=== PATIENT | female | born 1970 ===

== ENCOUNTER → 2018-06-20 10:22 | Outpatient (CLI) | payer OTHER, SELFPAY | PROVIDERS: Family Provider Family Medicine; PCP Family Medicine | DX: N95.1 Menopausal and female climacteric states (principal) | CPT/HCPCS: 36415; 83001 ==

== ENCOUNTER → 2018-11-07 08:52 | Outpatient (CLI) | payer OTHER, SELFPAY ==
[2018-11-07 10:09] LABS: Add Manual Diff / Slide Review NO; Basophils Absolute Auto 100 /uL (0-100); Basophils Percent Auto 0.9 % (0-2); Eosinophils Absolute Auto 200 /uL (0-450); Eosinophils Percent Auto 3.3 % (2-4); Hematocrit 41.9 % (36-46); Hemoglobin 13.8 g/dL (12.0-16.0); Lymphocytes Absolute Auto 2200 /uL (1100-4500); Lymphocytes Percent Auto 33.8 % (25-40); Mean Corpuscular HGB Conc 32.9 % (30-36); Mean Corpuscular Hemoglobin 29.9 PG (26-34); Mean Corpuscular Volume 91.1 fL (80-100); Monocytes Absolute Auto 400 /uL (0-900); Monocytes Percent Auto 6.7 % (3-14); Neutrophils Absolute Auto 3600 /uL (1500-7000); Neutrophils Percent Auto 55.3 % (50-75); Platelet Count 223 X10^3/uL (150-400); Red Cell Distribution Width 12.8 % (11.6-14.8); White Blood Cell Count 6.4 X10^3/uL (4.5-11.0)
[2018-11-07 10:50] LABS: Alanine Aminotransferase 37 IU/L (9-52); Albumin 4.5 g/dL (3.5-5.0); Albumin Globulin Ratio 1.2 (1.0-2.8); Alkaline Phosphatase 79 U/L (38-126); Aspartate Aminotransferase 28 IU/L (14-36); BUN Creatinine Ratio 23.3 (6-22); Bilirubin Total 0.4 mg/dL (0.2-1.3); Blood Urea Nitrogen 14 mg/dL (7-17); Calcium 9.3 mg/dL (8.4-10.2); Carbon Dioxide 28 mmol/L (22-32); Chloride 105 mmol/L (98-107); Cholesterol 185 mg/dL (140-199); Estimated Glomerular Filt Rate > 60.0 mL/min (>60); Globulin 3.7 g/dL (1.7-4.1); Glucose 94 mg/dL (70-100); HDL Cholesterol 49 mg/dL (40-60); HEMOLYSIS < 15 (0-50); LDL Cholesterol Calculated 121 mg/dL (<100); Potassium 3.9 mmol/L (3.4-5.1); Sodium 141 mmol/L (137-145); Total Protein 8.2 g/dL (6.3-8.2); Triglycerides 76 mg/dL (35-150)
[2018-11-07 10:58] LABS: Appearance Urine UA CLEAR; Bilirubin Urine UA NEGATIVE (NEGATIVE); Color Urine UA YELLOW; Glucose Urine UA NEGATIVE (Negative); Ketones Urine UA NEGATIVE (NEGATIVE); Leukocyte Esterase Urine UA TRACE (NEGATIVE); Nitrite Urine UA NEGATIVE (Negative); Occult Blood Urine UA TRACE-LYSED (Negative); Protein Urine UA NEGATIVE (Negative); Urobilinogen Urine UA 0.2 E.U./dL (0.2); pH Urine UA 6.5 (4.5-8.0)
[2018-11-07 11:11] LABS: Bacteria Urine None Seen; RBC Urine None Seen (0-5/HPF)
[2018-11-07 11:12] LABS: Culture Indicated Urine Cult Not Indicated; Squamous Epithelial Cell Urine 10-30 /HPF; Thyroid Stimulating Hormone 1.32 uIU/mL (0.47-4.68); WBC Urine 5-10/HPF (0-5/HPF)
== END ==
PROVIDERS: PCP Family Medicine; Visit Provider Family Medicine
DX: Z00.00 Encounter for general adult medical examination without abnormal findings (principal); Z13.220 Encounter for screening for lipoid disorders; Z13.29 Encounter for screening for other suspected endocrine disorder; Z78.0 Asymptomatic menopausal state
CPT/HCPCS: 36415; 80053; 80061; 81003; 81015; 83001; 84443; 85025

== ENCOUNTER → 2019-05-06 12:54 | Outpatient (CLI) | payer OTHER, SELFPAY ==
--- NOTE | 2019-05-06 | DI.MG.S_ITS ---
BILATERAL DIGITAL SCREENING MAMMOGRAM 3D/2D WITH CAD: 05/06/2019 CLINICAL: Routine screening. Comparison is made to exams dated: 07/14/2010 mammogram, 04/19/2009 mammogram, and 05/21/2007 mammogram - [facility]. There are scattered fibroglandular elements in both breasts. Current study was also evaluated with a Computer Aided Detection (CAD) system. No significant masses, calcifications, or other findings are seen in either breast. There has been no significant interval change. IMPRESSION: NEGATIVE There is no mammographic evidence of malignancy. A 1 year screening mammogram is recommended. This exam was interpreted at Station ID: [id number]. NOTE: For mammograms, a report in lay terms will be sent to the patient. Approximately 15% of breast malignancies will not be visualized mammographically. In the management of a palpable breast mass, a negative mammogram must not discourage biopsy of a clinically suspicious lesion. Electronically Signed By: Ro edwards/judah:05/08/2019 10:20:09 letter sent: Normal Exam ACR BI-RADS Category 1: Negative 3341F
== END ==
PROVIDERS: PCP Family Medicine; Visit Provider Family Medicine
DX: Z12.31 Encounter for screening mammogram for malignant neoplasm of breast (principal)
CPT/HCPCS: 77063; 77067

== ENCOUNTER → 2020-02-10 15:21 | Outpatient (CLI) | payer OTHER, SELFPAY ==
[2020-02-11 10:15] LABS: COVID19 Sendout Not Detected (Not Detect)
== END ==
PROVIDERS: PCP Family Medicine; Visit Provider Physician Assistant
DX: Z01.812 Encounter for preprocedural laboratory examination (principal)
CPT/HCPCS: 87635

== ENCOUNTER 2020-02-13 07:30 | Day surgery (SDC) | payer OTHER, SELFPAY ==
--- NOTE | 2020-02-13 | PATH_ITS ---
[facility] Accession Number: [id number] . 01 Material submitted: . colon - POLYPS AT 20CM . 02 Diagnosis: Colon Polyps at 20 cm, Biopsy: Hyperplastic polyps. MRV 02/15/2020 1149 Local . 02 Electronically signed: . Alicia Perez MD, Pathologist NPI- [id number] . 01 Gross description: . POLYPS AT 20CM: Received in formalin are multiple fragment(s) of henderson, soft tissue measuring 0.1 x 0.1 x 0.1 cm to 0.3 x 0.2 x 0.2 cm submitted entirely in 1 cassette(s) /GRETA 02/14/2020 1833 Local . 02 Pathologist provided ICD-10: K63.5 . 02 CPT . 390254 Performed at: 01 [facility] [address] [id number] MD Mario Arvizu MD Phone: [phone] Performed at: 02 [facility] [address] [place], [place] [id number] MD Alicia Perez MD Phone: [phone]
[2020-02-13 07:52] VITALS: BP 137/88; PULSE 97; RESP 16; TEMP 36.3; O2SAT 100
[2020-02-13 07:54] VITALS: BMI 28.3
[2020-02-13] MEDS: LACTATED RINGERS 1,000 ML 200 ML IV (08:04)
--- NOTE | 2020-02-13 08:29 | PM.HP.1 ---
History of Present Illness History of Present Illness Date Patient Seen: 02/13/20 Time Patient Seen: 08:24 Chief complaint: [id number] Narrative: Patient is a woman here for screening colonoscopy. She reports having had 1 about 10 years ago and 2 polyps were removed at that time. She is otherwise healthy. Patient History Medical History Family history of colon cancer in mother (Acute) History of headache (Acute) Varicose veins of right lower extremity (Acute) Surgical History History of colonoscopy (Resolved ~2011) History of third molar tooth extraction Family & Social History Social History: household members family Tobacco & Substance use: Smoking Status Never smoker alcohol intake frequency holiday/special occasion Substance Use Type does not use Meds Home Medications and Allergies Home Medications Medication Instructions Recorded Confirmed Type cholecalciferol (vitamin D3) 25 1,000 unit PO DAILY 10/31/18 02/13/20 History mcg (1,000 unit) capsule hydrocortisone 2.5 % topical cream 1 applictn DC QD-BID PRN #30 gram 10/31/18 02/13/20 Rx with perineal applicator omega-3 fatty acids 1,000 mg 1,000 mg PO DAILY 10/31/18 02/13/20 History capsule psyllium husk 0.4 gram capsule 0.4 gram PO DAILY 10/31/18 02/13/20 History Allergies Allergy/AdvReac Type Severity Reaction Status Date / Time No Known Drug Allergies Allergy Verified 02/13/20 07:45 Review of Systems Review of Systems Narrative: May have been told she had a murmur in the past. ROS: Yes All systems reviewed with the patient and are negative except as otherwise documented Exam Vital Signs (past 8 hours): - 02/13/20 07:52 Temperature 97.4 F L Pulse Rate 97 H Respiratory Rate 16 Blood Pressure 137/88 Pulse Oximetry 100 Oxygen Delivery Method Room Air Narrative Exam Narrative: Cooperative no apparent distress. Eyes are nonicteric. Lungs are clear to auscultation without rales or rhonchi. Heart regular rate and rhythm without murmur gallop. Abdomen is mildly protuberant soft. There are no palpable masses or tenderness. Patient is alert and oriented x3. Assessment & Plan Assessment & Plan narrative: I have discussed the procedure and the rationale with the patient including risks of bleeding, perforation which would necessitate a major operation, failure to find remove all lesions and the potential to tattoo. They appeared to understand and wished to proceed. Son is with her in will be back to pick her up after the procedure.
--- NOTE | 2020-02-13 08:31 | PM.PREOP ---
Pre-operative Note COVID-19 COVID-19 status: Negative Result date/Date tested (Pos, Neg/Pending): 02/10/20 Interval Note History & Physical reviewed/Exam performed by Physician: Yes Changes to H&P: No ASA Class (for procedural sedation): I
--- NOTE | 2020-02-13 09:12 | PM.OP.ENDO ---
Operative Date/Time/Diagnoses Date of procedure: 02/13/20 Time of procedure: 09:12 Pre-op diagnosis: Screening exam. Last exam 10 years ago. Post-op diagnosis: same (Small polyp like lesions in the rectum. May be hyperplastic/lymphoid. Sigmoid diverticulosis occasional) Procedure & Clinicians Study performed: Colonoscopy with cold biopsy Same procedure as scheduled: Yes Indications: Screening Surgeon: Wood Brambila Procedure Notes SCOAP/Timeout: Performed Procedure in detail: The patient was placed in the left lateral decubitus position and underwent IV sedation directed by the surgeon consisting of fentanyl and Versed. Digital exam was remarkable for hemorrhoids at the anal verge. Sphincter tone was slightly increased.. The scope was inserted and advanced through the rectum into the sigmoid, descending, transverse, and ascending colon. I noted small polypoid lesions in the rectum in biopsied a few of these. There were additional that I decided to remove on the way out. The patient was noted to have a few diverticuli In the sigmoid colon.. The cecum was reached identified by the ileocecal valve and the appendiceal opening. The ileocecal valve was successfully cannulated. The terminal ileum was normal in appearance. The scope was gradually brought out. Multiple Polyps were found in the rectum from 10-20 cm from the anal verge. These were small lesions that may be lymphoid or hyperplastic versus adenomatous. I probably biopsied a total of 10 lesions.. The scope ultimately was retroflexed in the rectum. The appearance was remarkable for internal hemorrhoids.. The scope was removed and the patient tolerated the procedure well Scope withdrawal time: 8 minutes(12 total) Sedation minutes: 31 Findings: diverticulosis and polyp Specimen(s): other (Multiple rectal polyps) Complications: none Post-procedure Recommendations: Colonscopy in 5 years Follow up: as needed Disposition: PACU
[2020-02-13] MEDS: fentaNYL 250 MCG/5 ML INJ IV (09:13)
[2020-02-13 09:14] VITALS: BP 105/74; PULSE 78; RESP 15; TEMP 36.3; O2SAT 96
[2020-02-13] MEDS: MIDAZOLAM 5 MG/5 ML VIAL IV (09:14)
[2020-02-13 09:19] VITALS: BP 96/67; PULSE 73; RESP 15; O2SAT 95
[2020-02-13 09:25] VITALS: BP 93/61; PULSE 72; RESP 13; O2SAT 95
[2020-02-13 09:29] VITALS: BP 116/81; PULSE 72; RESP 14; O2SAT 96
[2020-02-13 09:47] VITALS: BP 114/77; PULSE 71; RESP 20; TEMP 36; O2SAT 98
== END 2020-02-13 10:00 | disposition home or self-care (01) ==
PROVIDERS: PCP Registered Nurse Diabetes Educator; Referring Provider Registered Nurse Diabetes Educator; Visit Provider Specialist
PROC: 0DJD8ZZ Inspection of Lower Intestinal Tract, Via Natural or Artificial Opening Endoscopic (ICD-10-PCS; CPT 45378; principal; 2020-02-13 08:45)
DX: Z12.11 Encounter for screening for malignant neoplasm of colon (principal); Z80.0 Family history of malignant neoplasm of digestive organs; K57.30 Diverticulosis of large intestine without perforation or abscess without bleeding; K63.5 Polyp of colon
CPT/HCPCS: 45380; 99152; 99153; J2250; J3010

== ENCOUNTER → 2020-11-14 15:23 | Outpatient (CLI) | payer OTHER, SELFPAY ==
[2020-11-14] MEDS: COVID-19 VACC #1, MRNA(MOD) 100 MCG/0.5 ML VIAL IM (15:31)
== END ==
PROVIDERS: PCP Registered Nurse Diabetes Educator; Visit Provider Internal Medicine
DX: Z23 Encounter for immunization (principal)
CPT/HCPCS: 0011A; 91301

== ENCOUNTER → 2020-11-23 08:22 | Outpatient (CLI) | payer OTHER, SELFPAY ==
[2020-11-23 09:16] LABS: Hemoglobin 13.1 g/dL (12.0-16.0); Mean Corpuscular HGB Conc 32.8 % (30-36); Mean Corpuscular Hemoglobin 29.8 PG (26-34); Mean Corpuscular Volume 90.9 fL (80-100); Platelet Count 213 X10^3/uL (150-400); Red Cell Distribution Width 12.7 % (11.6-14.8); White Blood Cell Count 5.5 X10^3/uL (4.5-11.0)
[2020-11-23 09:33] LABS: Alanine Aminotransferase 21 IU/L (<35); Albumin 4.4 g/dL (3.5-5.0); Albumin Globulin Ratio 1.3 (1.0-2.8); Alkaline Phosphatase 92 U/L (38-126); Aspartate Aminotransferase 23 IU/L (14-36); BUN Creatinine Ratio 26.4 (6-22); Bilirubin Total 0.5 mg/dL (0.2-1.3); Blood Urea Nitrogen 14 mg/dL (7-17); Calcium 9.6 mg/dL (8.4-10.2); Carbon Dioxide 27 mmol/L (22-32); Chloride 107 mmol/L (98-107); Cholesterol 169 mg/dL (140-199); Estimated Glomerular Filt Rate > 60.0 mL/min (>60); Globulin 3.3 g/dL (1.7-4.1); Glucose 101 mg/dL (70-100); HDL Cholesterol 53 mg/dL (40-60); HEMOLYSIS < 15 (0-50); LDL Cholesterol Calculated 104 mg/dL (<100); Sodium 142 mmol/L (137-145); Total Protein 7.7 g/dL (6.3-8.2); Triglycerides 59 mg/dL (35-150)
[2020-11-23 10:47] LABS: TSH w/ Reflex to FT4 0.88 uIU/mL (0.47-4.68)
== END ==
PROVIDERS: PCP Registered Nurse Diabetes Educator; Referring Provider Registered Nurse Diabetes Educator; Visit Provider Registered Nurse Diabetes Educator
DX: Z00.00 Encounter for general adult medical examination without abnormal findings (principal); E78.00 Pure hypercholesterolemia, unspecified
CPT/HCPCS: 36415; 80053; 80061; 84443; 85027

== ENCOUNTER → 2020-12-12 15:21 | Outpatient (CLI) | payer OTHER, SELFPAY ==
[2020-12-12] MEDS: COVID-19 VACC #2, MRNA(MOD) 100 MCG/0.5 ML VIAL IM (15:26)
== END ==
PROVIDERS: PCP Registered Nurse Diabetes Educator; Visit Provider Internal Medicine
DX: Z23 Encounter for immunization (principal)
CPT/HCPCS: 0012A; 91301

== ENCOUNTER → 2022-09-14 15:45 | Outpatient (CLI) | payer OTHER, SELFPAY ==
--- NOTE | 2022-09-14 15:47 | DI.MG.S_ITS ---
BILATERAL DIGITAL SCREENING MAMMOGRAM 3D/2D WITH CAD: 09/14/2022 CLINICAL: Routine screening. Comparison is made to exams dated: 05/06/2019 mammogram - [facility], 07/14/2010 mammogram, and 04/19/2009 mammogram - [facility]. Both breasts are heterogeneously dense, which may obscure small masses (category c / 51-75% glandular tissue). Current study was also evaluated with a Computer Aided Detection (CAD) system. No significant masses, calcifications, or other findings are seen in either breast. There has been no significant interval change. IMPRESSION: NEGATIVE There is no mammographic evidence of malignancy. A 1 year screening mammogram is recommended. Based on the Tyrer Cuzick model (a risk assessment model) the patient's lifetime risk is 10.0% and her 10 year risk is 2.9%. According to the ACR, ACS, and NCCN guidelines, an annual breast MRI exam along with mammogram is recommended if the patient's lifetime risk is 20% or greater. This exam was interpreted at Station ID: [id number]. NOTE: For mammograms, a report in lay terms will be sent to the patient. Approximately 15% of breast malignancies will not be visualized mammographically. In the management of a palpable breast mass, a negative mammogram must not discourage biopsy of a clinically suspicious lesion. Electronically Signed By: Taryn mcleod/judah:09/15/2022 09:45:31 letter sent: Normal Exam ACR BI-RADS Category 1: Negative 3341F
== END ==
PROVIDERS: PCP Registered Nurse Diabetes Educator; Referring Provider Registered Nurse Diabetes Educator; Visit Provider Registered Nurse Diabetes Educator
DX: Z12.31 Encounter for screening mammogram for malignant neoplasm of breast (principal)
CPT/HCPCS: 77063; 77067

== ENCOUNTER → 2024-02-18 08:05 | Outpatient (CLI) | payer OTHER, SELFPAY ==
[2024-02-18 09:43] LABS: Hematocrit 40.8 % (36-46); Hemoglobin 13.5 g/dL (12.0-16.0); Mean Corpuscular HGB Conc 33.1 % (30-36); Mean Corpuscular Hemoglobin 29.9 PG (26-34); Mean Corpuscular Volume 90.4 fL (80-100); Platelet Count 205 X10^3/uL (150-400); Red Blood Cell Count 4.51 X10^6/uL (4.0-5.2); Red Cell Distribution Width 13.1 % (11.6-14.8); White Blood Cell Count 5.5 X10^3/uL (4.5-11.0)
[2024-02-18 10:11] LABS: Alanine Aminotransferase 26 IU/L (<35); Albumin 4.4 g/dL (3.5-5.0); Albumin Globulin Ratio 1.1 (1.0-2.8); Alkaline Phosphatase 84 U/L (38-126); Aspartate Aminotransferase 26 IU/L (14-36); BUN Creatinine Ratio 29.1 (6-22); Bilirubin Total 0.5 mg/dL (0.2-1.3); Blood Urea Nitrogen 16 mg/dL (7-17); Carbon Dioxide 27 mmol/L (22-32); Chloride 109 mmol/L (98-107); Cholesterol 192 mg/dL (140-199); Estimated Glomerular Filt Rate > 60 mL/min (>60); Globulin 3.9 g/dL (1.7-4.1); Glucose 100 mg/dL (70-100); HDL Cholesterol 49 mg/dL (40-60); HEMOLYSIS < 15 (0-50); LDL Cholesterol Calculated 115 mg/dL (<100); Sodium 143 mmol/L (137-145); Total Protein 8.3 g/dL (6.3-8.2); Triglycerides 141 mg/dL (35-150)
[2024-02-18 10:41] LABS: TSH w/ Reflex to FT4 1.12 uIU/mL (0.47-4.68)
== END ==
LOC: LAB 08:06
PROVIDERS: PCP Registered Nurse Diabetes Educator; Referring Provider Registered Nurse Diabetes Educator; Visit Provider Registered Nurse Diabetes Educator
DX: Z00.00 Encounter for general adult medical examination without abnormal findings (principal); R73.01 Impaired fasting glucose; E78.00 Pure hypercholesterolemia, unspecified
CPT/HCPCS: 36415; 80053; 80061; 84443; 85027

== ENCOUNTER → 2025-04-26 14:17 | Outpatient (CLI) | payer OTHER, SELFPAY ==
--- NOTE | 2025-04-26 14:19 | DI.MG.S_ITS ---
MM screening mammo BI: 04/26/2025. BI-RADS: 1 CLINICAL: 54-year old female for bilateral screening mammogram. Tyrer-Cuzick lifetime risk of 7.9%. No personal or first-degree family history of breast cancer. PRIOR EXAMS 09/14/2022, 05/06/2019. MAMMOGRAPHY TECHNIQUE: 2D and 3D (tomosynthesis) digital mammographic views obtained, with additional images as needed for full coverage. Current study was also evaluated with a Computer Aided Detection (CAD) system. DENSITY C. The breasts are heterogeneously dense, which may obscure small masses. MAMMOGRAPHY FINDINGS Bilateral: No suspicious mass, asymmetry, microcalcification, or other abnormality seen. IMPRESSION: * No evidence of malignancy. RECOMMENDATIONS Bilateral * Annual screening mammography. OVERALL ASSESSMENT CATEGORY BI-RADS-1: Negative. The [employer] recommends annual screening mammography beginning at age 40 for women with average risk of breast cancer. ELECTRONICALLY SIGNED: Parish High M.D. on 04/26/2025 at 10:34:30 PM PT Interpreting Station ID: [id number]
== END ==
PROVIDERS: PCP Registered Nurse Diabetes Educator; Referring Provider Registered Nurse Diabetes Educator; Visit Provider Registered Nurse Diabetes Educator
DX: Z12.31 Encounter for screening mammogram for malignant neoplasm of breast (principal); R92.333 Mammographic heterogeneous density, bilateral breasts
CPT/HCPCS: 77063; 77067